=== PATIENT | male | born 2000 | race Caucasian/White ===

== ENCOUNTER 2022-01-21 16:28 | Emergency (ER) | payer MEDICAID ==
[~2022-01-21] VITALS: Ht 162.6 cm; Wt 44.0 kg
[2022-01-21 16:38] VITALS: BP 140/69
[2022-01-21] MEDS ORDERED: KETOROLAC 15 MG/ML VIAL IVP ONE (17:05)
[2022-01-21] MEDS ORDERED: NACL 0.9% 1,000 ML IV ONE (17:05)
[2022-01-21] MEDS ORDERED: ONDANSETRON 4 MG/2 ML VIAL IVP ONE (17:05)
--- NOTE | 2022-01-21 17:07 | NUR ---
PT TAKEN TO ER BED 6
--- NOTE | 2022-01-21 17:20 | NUR ---
21YO MALE PT BIBA FROM HOME C/O RL ABDOMINAL X3 DAYS. PER EMS , PT WAS GIVEN ZOFRAN 4MGIV& FENTANYL 100MG IV. PT REPORTS [facility] 10/10 R FLANK PAIN W/ RADIATION TO GROIN AREA. PT STATES HE WAS SEEN AT [facility] FOR SYMPTOMS. PT WAS DX W/ KIDNEY STONES AND D/C W/OUT RX . UPON ARRIVAL PT NAUSEOUS , IN VISIBLE DISTRESS W/ GUARDING ABDOMEN. PT STATES HESITANCY XTODAY, DENIES DYSURIA. PT ABDOMEN TENDER TO TOUCH, NON DISTENDED, ACTIVE X4. DENIES TAKING MEDICATION FOR PAIN. DENIES V/D, CHEST PAIN OR SOB. PT AAOX4, RESPIRATIONS EVEN AND UNLABORED. HX: KIDNEY STONES, HIV + NKA
--- NOTE | 2022-01-21 17:30 | NUR ---
pt attempted to urinate. "I cant"
[2022-01-21 17:54] LABS: BASOPHILS % (AUTO) 0.3 % (0.0-2.0); EOSINOPHILS % (AUTO) 0.3 % (0.0-4.0); HEMATOCRIT 41.4 % (36-52); HEMOGLOBIN 13.7 g/dL (12.0-18.0); LYMPHOCYTES # (AUTO) 1.1 K/uL (2.0-11.5); LYMPHOCYTES % (AUTO) 10.5 % (20.5-51.1); MEAN CORPUSCULAR HEMOGLOBIN 28 pg (27-31); MEAN CORPUSCULAR HGB CONC 33 g/dL (33-37); MONOCYTES # (AUTO) 0.4 K/uL (0.8-1.0); MONOCYTES % (AUTO) 4.1 % (1.7-9.3); NEUTROPHILS # (AUTO) 8.6 K/uL (1.8-7.7); NEUTROPHILS % (AUTO) 84.8 % (42.2-75.2); PLATELET COUNT (AUTO) 262 K/uL (140-450); RED BLOOD CELL COUNT(AUTO) 4.92 MIL/uL (4.20-6.10); RED CELL DISTRIBUTION WIDTH 13.8 % (11.6-13.7); WHITE BLOOD COUNT (AUTO) 10.2 K/uL (4.8-10.8)
--- NOTE | 2022-01-21 18:15 | NUR ---
pt encouraged to give urine sample. "i cant right now"
[2022-01-21 18:23] LABS: ALBUMIN 4.2 g/dL (3.4-5.0); CARBON DIOXIDE 27.5 mmol/L (21-32); POTASSIUM 3.5 mmol/L (3.5-5.1); TOTAL BILIRUBIN 0.7 mg/dL (0.0-1.0)
--- NOTE | 2022-01-21 19:30 | NUR ---
REPORT GIVEN TO YRIS CAMACHO. ALL QUESTION ANSWERED. TRANSFER OF CARE AT THIS TIME
--- NOTE | 2022-01-21 19:41 | NUR ---
PATIETN IN BED TALKING ON PHONE TO FRIENDS. DOESNT APPEAR TO BE IN DISTRESS. RR ARE EVEN AND UNLABORED. VSS. ALL NEEDS MET.
--- NOTE | 2022-01-21 19:44 | NUR ---
PATIENT RQ WATER.
[2022-01-21 19:47] VITALS: BP 103/74
[2022-01-21] MEDS ORDERED: IBUP-2213 PO (19:56)
[2022-01-21] MEDS ORDERED: ACET-8386 PO (19:56)
[2022-01-21] MEDS ORDERED: TAMS0.4C96 PO (19:56)
--- NOTE | 2022-01-21 20:13 | NUR ---
Patient discharged with v/s stable. Written and verbal after care instructions given and explained. Patient alert, oriented and verbalized understanding of instructions. Ambulatory with steady gait. All questions addressed prior to discharge. ID band removed. Patient advised to follow up with PMD. Rx of IBUPROFEN, FLOMAX, NORCO 5/325 given. Patient educated on indication of medication including possible reaction and side effects. Opportunity to ask questions provided and answered.
== END 2022-01-21 20:10 | disposition home or self-care (01) ==
LOC: MED 16:28
DX: N20.0 Calculus of kidney (principal); R03.0 Elevated blood-pressure reading, without diagnosis of hypertension
CPT/HCPCS: 36415; 74177; 80053; 81002; 83690; 85025; 96361; 96374; 96375; 99284; J1885; J2405; J7030; Q9967